=== PATIENT | male | born 1995 | race African-American/Black ===

== ENCOUNTER 2017-01-30 00:10 | Emergency (ER) | payer OTHER, BC ==
[~2017-01-30] VITALS: Ht 175.3 cm; Wt 90.0 kg
[~2017-01-30 00:10] MED LIST: MUCINEX600 MG PO; NAPROSYN500 MG PO; NOHOMEMEDS; ROBITUSSIN NIG118 ML PO; TESSALON PERLE100 MG PO; ZOFRAN4 MG PO
[2017-01-30] MEDS ORDERED: FLEXERIL10 MG PO (02:51)
[2017-01-30] MEDS ORDERED: LIDOCAINE700 MG TP (02:51)
[2017-01-30 03:10] VITALS: BP 130/91
== END 2017-01-30 03:11 | disposition home or self-care (01) ==
LOC: EME 00:10
DX: S39.012A Strain of muscle, fascia and tendon of lower back, initial encounter (principal); X50.0XXA Overexertion from strenuous movement or load, initial encounter; Y99.0 Civilian activity done for income or pay
CPT/HCPCS: 99281; 99284

== ENCOUNTER 2017-12-23 12:54 | Emergency (ER) | payer BC ==
[~2017-12-23] VITALS: Ht 180.3 cm; Wt 87.0 kg
[~2017-12-23 12:54] MED LIST changes: +FLEXERIL10 MG PO; +LIDOCAINE700 MG TP
[2017-12-23 13:12] VITALS: BP 122/78
== END 2017-12-23 14:27 | disposition home or self-care (01) ==
LOC: EME 12:54
DX: S30.0XXA Contusion of lower back and pelvis, initial encounter (principal); W11.XXXA Fall on and from ladder, initial encounter; Z88.8 Allergy status to other drugs, medicaments and biological substances
CPT/HCPCS: 72100; 99281; 99283